=== PATIENT | female | born 1965 | race Caucasian/White ===

== ENCOUNTER 2016-11-21 13:03 | Inpatient (IN) | payer MEDICARE ==
[~2016-11-21] VITALS: Ht 167.6 cm; Wt 94.9 kg
[2016-11-21] MEDS ORDERED: ALPR0.5T8 PO (13:16)
[2016-11-21] MEDS ORDERED: TRAZ-144 PO (13:16)
[2016-11-21 13:33] LABS: BASOPHILS # (AUTO) 0.02 K/uL (0.00-0.20); BASOPHILS % (AUTO) 0.3 % (0.0-2.0); EOSINOPHILS # (AUTO) 0.09 K/uL (0.00-0.70); HEMATOCRIT 37.4 % (36-46); HEMOGLOBIN 12.7 g/dL (12.0-16.0); LYMPHOCYTES # (AUTO) 2.2 K/uL (1.0-4.8); LYMPHOCYTES % (AUTO) 24.3 % (22.0-44.0); MEAN CORPUSCULAR HEMOGLOBIN 30.5 pg (26.0-34.0); MEAN CORPUSCULAR HGB CONC 33.8 G/dL (31.0-37.0); MEAN CORPUSCULAR VOLUME 90 fL (80-100); MONOCYTES # (AUTO) 0.4 K/uL (0.1-1.0); MONOCYTES % (AUTO) 4.7 % (2.0-9.0); NEUTROPHILS # (AUTO) 6.2 K/uL (1.8-7.7); NEUTROPHILS % (AUTO) 69.7 % (40.0-70.0); PLATELET COUNT (AUTO) 278 K/uL (150-450); RED BLOOD CELL COUNT(AUTO) 4.15 MIL/uL (4.00-5.20); RED CELL DISTRIBUTION WIDTH 13.4 % (11.5-14.5); WHITE BLOOD COUNT (AUTO) 8.9 K/uL (4.5-11.0)
[2016-11-21 13:42] LABS: ANION GAP 16 mmol/L (8-16); CALCIUM, TOTAL 9.5 mg/dL (8.8-10.5); CARBON DIOXIDE 22 mmol/L (22-29); CHLORIDE 92 mmol/L (98-107); CREATININE 1.15 mg/dL (0.60-1.30); GLOMERULAR FILTR. RATE CALC 49 mL/min (>60); SODIUM SERUM 130 mmol/L (136-145); UREA NITROGEN, BLOOD 31 mg/dL (7-18)
[2016-11-21 13:49] LABS: ALANINE AMINOTRANSFERASE 87 U/L (12-78); ALBUMIN 3.9 g/dL (3.4-5.0); ASPARTATE AMINOTRANSFERASE 104 U/L (15-37); BILIRUBIN,TOTAL 1.5 mg/dL (0.1-1.0); TOTAL PROTEIN, SERUM 8.2 g/dL (6.4-8.2)
[2016-11-21] MEDS ORDERED: HALOPERIDOL 5 MG TABLET PO PRN (15:15)
[2016-11-21] MEDS ORDERED: LORazepam 2 MG TABLET PO PRN (15:15)
[2016-11-21] MEDS ORDERED: POTASSIUM CHLORIDE 20 MEQ ER TABLET PO ONE (15:30)
[2016-11-21] MEDS ORDERED: SODIUM CHLORIDE 0.9% 1,000 ML IV ONE (15:30)
[2016-11-21] MEDS ORDERED: LORazepam 1 MG TABLET PO ONE (16:00)
[2016-11-21] MEDS ORDERED: LORazepam 2 MG TABLET PO ONE (16:00)
[2016-11-21] MEDS ORDERED: HALOPERIDOL 5 MG TABLET PO ONE (16:00)
[2016-11-21 18:39] LABS: CALCIUM, TOTAL 9.1 mg/dL (8.8-10.5); CREATININE 1.02 mg/dL (0.60-1.30); POTASSIUM 3.5 mmol/L (3.5-5.1)
[2016-11-21 20:08] VITALS: BP 125/79
[2016-11-22 08:16] VITALS: BP 123/75
[2016-11-22] MEDS ORDERED: ONDANSETRON HCL 4 MG TABLET PO PRN (10:15)
[2016-11-22] MEDS ORDERED: MAGNESIUM HYDROXIDE SUSPENSION 30 ML UDCUP PO PRN (10:15)
[2016-11-22] MEDS ORDERED: IBUPROFEN 600 MG TABLET PO PRN (10:15)
[2016-11-22] MEDS ORDERED: BACITRACIN 28.4 GM OINTMENT TP PRN (10:15)
[2016-11-22] MEDS ORDERED: ALBUTEROL SULFATE HFA 90 MCG/PUFF 8 GM INHALER IH PRN (10:15)
[2016-11-22] MEDS ORDERED: PETROLATUM,WHITE 71 GM JELLY TP PRN (10:15)
[2016-11-22] MEDS ORDERED: BENZOCAINE/MENTHOL LOZENGE [8 LOZENGES/PACKET] MM PRN (10:15)
[2016-11-22] MEDS ORDERED: LOPERAMIDE HCL 2 MG CAPSULE PO PRN (10:15)
[2016-11-22] MEDS ORDERED: MAG HYDROX/AL HYDROX/SIMETH ES 30 ML SUSPENSION UDCUP PO PRN (10:15)
[2016-11-22] MEDS ORDERED: CloNIDine HCL 0.1 MG TABLET PO PRN (10:15)
[2016-11-22 17:08] VITALS: BP 130/92
[2016-11-22] MEDS: ZOLPIDEM TARTRATE 10 MG TABLET PO PRN (21:17)
[2016-11-23] MEDS: LEVOTHYROXINE SODIUM 25 MCG TABLET PO SCH (06:07)
[2016-11-23 08:00] VITALS: BP 146/88
[2016-11-23 09:05] LABS: HEMOGLOBIN A1C 6.2 % (4.5-6.2)
[2016-11-23 09:07] LABS: CHOL/HDL RATIO 8.2 (3.9-5.7); THYROID STIMULATING HORMONE 0.35 uIU/mL (0.36-3.74)
[2016-11-23 12:36] LABS: APPEARANCE,URINE CLEAR (CLEAR); GLUCOSE, URINE (UA) NEGATIVE (NEGATIVE); KETONES,URINE NEGATIVE (NEGATIVE); LEUKOCYTE ESTERASE ,URINE NEGATIVE (NEGATIVE); OCCULT BLOOD,URINE NEGATIVE (NEGATIVE); PROTEIN,URINE NEGATIVE (NEGATIVE)
[2016-11-23 12:37] LABS: ADD UA MICROSCOPIC NO
[2016-11-23] MEDS: RisperiDONE 0.5 MG TABLET PO SCH (16:29)
[2016-11-23 17:02] VITALS: BP 138/84
[2016-11-23] MEDS: SIMVASTATIN 10 MG TABLET PO SCH (20:31)
[2016-11-23] MEDS: ZOLPIDEM TARTRATE 10 MG TABLET PO PRN (20:31)
[2016-11-24] MEDS: LEVOTHYROXINE SODIUM 25 MCG TABLET PO SCH (06:34)
[2016-11-24] MEDS: RisperiDONE 0.5 MG TABLET PO SCH ×2 (08:35→16:25)
[2016-11-24 10:00] VITALS: BP 145/70
[2016-11-24] MEDS: ACETAMINOPHEN 325 MG TABLET PO PRN ×2 (10:01→15:01)
[2016-11-24 11:09] LABS: HEPATITIS Bs ANTIGEN SCREEN P Negative (Negative); HEPATITIS C AB SCREEN <0.1 s/co ratio (0.0-0.9)
[2016-11-24 15:00] VITALS: BP 150/96
[2016-11-24 16:53] VITALS: BP 146/80
[2016-11-24] MEDS: SIMVASTATIN 10 MG TABLET PO SCH (21:34)
[2016-11-25 00:10] VITALS: BP 140/74
[2016-11-25] MEDS: ACETAMINOPHEN 325 MG TABLET PO PRN (00:12)
[2016-11-25] MEDS: ZOLPIDEM TARTRATE 10 MG TABLET PO PRN (00:13)
[2016-11-25] MEDS ORDERED: LEVO25TA9 PO (06:48)
[2016-11-25] MEDS ORDERED: SIMV-259 PO (06:48)
[2016-11-25] MEDS: LEVOTHYROXINE SODIUM 25 MCG TABLET PO SCH (07:06)
[2016-11-25] MEDS: RisperiDONE 0.5 MG TABLET PO SCH (07:58)
[2016-11-25] MEDS ORDERED: RISP.5 PO (09:13)
== END 2016-11-25 08:00 | disposition home or self-care (01) | DRG 885 ==
LOC: EMS 13:05 → 3EI 18:26
PROVIDERS: ADMIT Psychiatry & Neurology Psychiatry; ATTEND Psychiatry & Neurology Psychiatry
DX: F25.9 Schizoaffective disorder, unspecified (principal); E87.1 Hypo-osmolality and hyponatremia; F29 Unspecified psychosis not due to a substance or known physiological condition; F41.9 Anxiety disorder, unspecified; F12.90 Cannabis use, unspecified, uncomplicated; F31.9 Bipolar disorder, unspecified; I10 Essential (primary) hypertension; E03.9 Hypothyroidism, unspecified; K21.9 Gastro-esophageal reflux disease without esophagitis; G47.00 Insomnia, unspecified; E87.6 Hypokalemia; F17.200 Nicotine dependence, unspecified, uncomplicated; R73.9 Hyperglycemia, unspecified; R74.0 Nonspecific elevation of levels of transaminase and lactic acid dehydrogenase [LDH]; E66.9 Obesity, unspecified; Z56.0 Unemployment, unspecified; Z68.33 Body mass index [BMI] 33.0-33.9, adult; Z79.899 Other long term (current) drug therapy; Z90.49 Acquired absence of other specified parts of digestive tract; Z71.6 Tobacco abuse counseling; Z98.890 Other specified postprocedural states; Z90.711 Acquired absence of uterus with remaining cervical stump
CPT/HCPCS: 80074; 82306; 83036; 84132; 84295; 84443; 93005; 96360; 96361; 99285; 99406; G0480; J7030; Q0162